=== PATIENT | male | born 1975 | race Caucasian/White ===

== ENCOUNTER 2019-03-30 07:36 | Emergency (ER) | payer OTHER ==
[~2019-03-30] VITALS: Ht 177.8 cm; Wt 87.2 kg
[2019-03-30 10:14] VITALS: BP 122/92
== END 2019-03-30 10:28 | disposition home or self-care (01) ==
LOC: ED 09:51
DX: K92.1 Melena (principal); R19.7 Diarrhea, unspecified; F11.23 Opioid dependence with withdrawal; Y92.89 Other specified places as the place of occurrence of the external cause
CPT/HCPCS: 36415; 80053; 83690; 85025; 99283

== ENCOUNTER 2019-04-06 14:24 | Emergency (ER) | payer OTHER ==
[~2019-04-06] VITALS: Ht 177.8 cm; Wt 86.0 kg
[~2019-04-06 14:24] MED LIST: DIAZ10TA PO; METH10TA2 PO
[2019-04-06 14:40] VITALS: BP 134/84
[2019-04-06] MEDS ORDERED: SODIUM CHLORIDE FLUSH 10ML SYR IVF ONE (15:00)
[2019-04-06] MEDS ORDERED: SODIUM CHLORIDE 0.9% 1,000ML IVBOLUS ONE (15:00)
--- NOTE | 2019-04-06 15:09 | NUR ---
PT PRESENTED TO ED WITH METHADONE WITHDRAWALS. PT STATED " I QUIT COLD TURKEY." PT A&OX4. PT PLACED IN ROOM AND PLACED ON BP AND CONT. PULSE OXIMETER. PT STATED HE HAS HAD VOMITTING AND DIARRHEA FOR A FEW DAYS. ASSESSMENT COMPLETED.
[2019-04-06 15:15] LABS: BASOPHILS # (AUTO) 0.03 x10^3/uL (0-0.1); BASOPHILS % (AUTO) 0 % (0-1); EOSINOPHILS # (AUTO) 0.04 x10^3/uL (0-0.4); EOSINOPHILS % (AUTO) 0 % (1-7); LYMPHOCYTES # (AUTO) 2.78 x10^3/uL (1-3.4); LYMPHOCYTES % (AUTO) 26 % (22-44); MD NO; MEAN CORPUSCULAR HEMOGLOBIN 31.1 pg (27.5-34.5); MEAN CORPUSCULAR HGB CONC 33.2 g/dL (33.2-36.2); MEAN CORPUSCULAR VOLUME 93.8 fL (81-97); MEAN PLATELET VOLUME 8.5 fL (7.4-10.4); MONOCYTES # (AUTO) 0.73 x10^3/uL (0.2-0.8); MONOCYTES % (AUTO) 7 % (2-9); NEUTROPHILS # (AUTO) 7.04 x10^3/uL (1.8-6.8); NEUTROPHILS % (AUTO) 66 % (42-75); PLATELET COUNT 305 x10^3/uL (130-400); RED BLOOD COUNT 5.13 x10^6/uL (4.38-5.82); RED CELL DISTRIBUTION WIDTH 13.4 % (9.4-14.8)
[2019-04-06] MEDS ORDERED: ESCI5TAB7 PO (15:15)
[2019-04-06 15:23] LABS: ANION GAP 5 mmol/L (5-15); CALCIUM 8.8 mg/dL (8.5-10.1); CHLORIDE 110 mmol/L (98-107)
--- NOTE | 2019-04-06 15:51 | NUR ---
pt assisted to br and urine sent to lab.
[2019-04-06] MEDS ORDERED: KETOROLAC 30 MG/1 ML ONE (16:06)
[2019-04-06] MEDS ORDERED: ACETAMINOPHEN 325 MG TABLET ONE (16:07)
[2019-04-06] MEDS ORDERED: METHOCARBAMOL 750 MG TABLET ONE (16:07)
--- NOTE | 2019-04-06 16:10 | NUR ---
PT REQUESTING MUSCLE RELAXANTS FOR BACK PAIN
[2019-04-06] MEDS ORDERED: ACETAMINOPHEN 325 MG TABLET PO ONE (16:30)
[2019-04-06] MEDS ORDERED: METHOCARBAMOL 750 MG TABLET PO ONE (16:30)
[2019-04-06] MEDS ORDERED: KETOROLAC 30 MG/1 ML IVPush ONE (16:30)
--- NOTE | 2019-04-06 16:30 | NUR ---
report given to yadira peterson
[2019-04-06 16:35] LABS: MICROSCOPIC NOT IND
--- NOTE | 2019-04-06 16:35 | NUR ---
Received report; assumed patient care; abc assessment complete; awaiting receck by provider.
--- NOTE | 2019-04-06 16:41 | NUR ---
at bedside, awaiting orders.
[2019-04-06 16:42] LABS: CULTURE INDICATED? NO
== END 2019-04-06 17:39 | disposition home or self-care (01) ==
LOC: ED 14:55
DX: E86.0 Dehydration (principal); E86.9 Volume depletion, unspecified; F11.23 Opioid dependence with withdrawal; Z87.891 Personal history of nicotine dependence
CPT/HCPCS: 36415; 80048; 81003; 82040; 85025; 96361; 96374; 99283; J1885; J7030